=== PATIENT | male | born 1945 | race Caucasian/White ===

== ENCOUNTER → 2019-09-18 14:25 | Outpatient (BNVA) | payer MEDICARE, SELFPAY | PROVIDERS: Family Provider Physician Assistant Medical; PCP Internal Medicine; Referring Provider Physician Assistant Medical; Visit Provider Urology | DX: Z12.5 Encounter for screening for malignant neoplasm of prostate (principal); R97.20 Elevated prostate specific antigen [PSA]; N52.9 Male erectile dysfunction, unspecified; N39.41 Urge incontinence | CPT/HCPCS: 81001 ==

== ENCOUNTER 2019-10-01 06:00 | Outpatient (RCR) | payer MEDICARE, SELFPAY | END 2019-10-09 23:59 | disposition home or self-care (01) | LOC: WPT 06:00 | PROVIDERS: PCP Internal Medicine; Visit Provider Nurse Practitioner Family | DX: M47.816 Spondylosis without myelopathy or radiculopathy, lumbar region (principal) | CPT/HCPCS: 97110; 97162 ==

== ENCOUNTER 2019-10-10 06:00 | Outpatient (RCR) | payer MEDICARE, SELFPAY | END 2019-11-09 23:59 | disposition home or self-care (01) | LOC: WPT 06:00 | PROVIDERS: PCP Internal Medicine; Visit Provider Nurse Practitioner Family | DX: M47.816 Spondylosis without myelopathy or radiculopathy, lumbar region (principal) | CPT/HCPCS: 97110; 97112 ==

== ENCOUNTER → 2019-10-17 14:06 | Outpatient (BNVA) | payer MEDICARE, SELFPAY | PROVIDERS: PCP Internal Medicine; Visit Provider Nurse Practitioner Family | DX: R32 Unspecified urinary incontinence (principal); N52.9 Male erectile dysfunction, unspecified; K21.9 Gastro-esophageal reflux disease without esophagitis; R39.9 Unspecified symptoms and signs involving the genitourinary system | CPT/HCPCS: 81001 ==

== ENCOUNTER 2019-12-08 13:35 | Emergency (ER) | payer MEDICARE, SELFPAY ==
[2019-12-08 13:37] VITALS: BP 167/102; PULSE 74; RESP 17; TEMP 37.1; O2SAT 94; BMI 28.1
--- NOTE | 2019-12-08 13:37 | XRR_ITS ---
PROCEDURE INFORMATION: Exam: XR Lumbosacral Spine, 2 or 3 Views Exam date and time: 12/08/2019 3:16 PM Age: 74 years old Clinical indication: Low back pain; Additional info: Pain S/P fall TECHNIQUE: Imaging protocol: XR of the lumbosacral spine, 2 or 3 views. COMPARISON: CR Lumbar Spine Flex/Extens [id number] 11/03/2016 12:04 PM FINDINGS: Vertebrae: Bones appear demineralized. [id number] L1 superior endplate compression fracture, chronic. Mild L2 superior endplate concavity, chronic. Soft tissues: Unremarkable. XR/XR lumbar spine 2-3V* [id number] IMPRESSION: No acute fracture evident. Chronic L1 compression fracture, unchanged.
--- NOTE | 2019-12-08 13:37 | XRR_ITS ---
PROCEDURE INFORMATION: Exam: XR Thoracic Spine, 3 Views Exam date and time: 12/08/2019 3:16 PM Age: 74 years old Clinical indication: Injury or trauma; Fall; Initial encounter; Blunt trauma (contusions or hematomas); Additional info: Pain/sp fall TECHNIQUE: Imaging protocol: XR of the thoracic spine, 3 views. COMPARISON: 03/29/2014 portable chest. FINDINGS: Vertebrae: Bones appear demineralized. Moderate to severe T8 vertebral body compression fracture, appears chronic and unchanged from 03/29/2014. T11 inferior endplate concave deformity, appears chronic. T4 appears mildly compressed, age uncertain. Soft tissues: Unremarkable. XR/XR thoracic spine 3V* [id number] IMPRESSION: Moderate to severe chronic T8 compression fracture. T11 inferior endplate concave deformity, appears chronic. Mild T4 compression of uncertain age but appears chronic.
--- NOTE | 2019-12-08 13:39 | ED_ITS ---
HPI - Fall General: Chief Complaint: Fall Stated Complaint: MID BACK PAIN S/P FALL Time Seen by Provider: 12/08/19 13:37 History of Present Illness: HPI Narrative: 74-year-old male presents emergency room via EMS. He had slipped out of bed per his report and laid on the floor pretty much most of the night he has some moderate dementia is complaining of low back pain but this is a chronic issue for him. He has had more frequent falls recently. He has no obvious injuries he is sitting slumped a little bit off to the left for comfort he has no focal neurologic deficits or specific complaints or injuries beyond his low back pain. MD complaint: fall Onset (ago): hour(s) Fall from: out of bed Fall witnessed: no Place fall occurred: home Loss of consciousness: None Prolonged down time: yes and hour(s) (12-15) Location of injury: back Severity: moderate Associated symptoms-after fall: Denies abdominal pain or chest pain Review of Systems Const: Denies: fever(s), chills, body aches, change in appetite, fatigue or malaise Card: Denies: chest pain, edema, dyspnea on exertion or orthopnea Resp: Denies: dyspnea, productive cough or non-productive cough GI: Denies: abdominal pain, nausea, vomiting, hematemesis, coffee ground emesis, diarrhea, constipation, bloating, hematochezia or melena : Denies: flank pain, dysuria, urinary frequency or urinary urgency PFS ED PFSH: Medical History Anxiety and depression 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 Elevated PSA Erectile dysfunction GERD (gastroesophageal reflux disease) Hemiparesis History of TIA (transient ischemic attack) Hypertension Osteoarthritis of lumbar spine Seizure disorder Urge incontinence of urine Urinary incontinence UTI symptoms Family History Mother Cancer Brother Diabetes Father CAD (coronary artery disease) Social History Smoking and tobacco status: never smoked Alcohol intake: never Adopted: No Caregiver/support person: No Marital status: / Physical Exam Const: COMMON NORMALS: no acute distress GENERAL APPEARANCE: cooperative and comfortable ORIENTATION/CONSCIOUSNESS: Yes awake, Yes oriented to person, Yes oriented to place and Yes oriented to time HENMT: COMMON NORMALS: normocephalic, atraumatic and hearing grossly normal bilaterally HEAD & SCALP: normocephalic and atraumatic Eye: COMMON NORMALS: Equal, round and reactive pupils present, EOMs intact bilaterally, conjunctivae normal and no scleral icterus CONJUNCTIVA: Yes conjunctivae normal PUPIL: Yes Equal, round and reactive pupils present Neck/C-Spine: COMMON NORMALS: full ROM, no lymphadenopathy, supple and no JVD Lymph: LYMPHATIC: no lymphadenopathy noted and no lymphedema noted Resp: COMMON NORMALS: normal respiratory effort, No retractions, No use of accessory muscles and clear to auscultation bilaterally AUSCULTATION: clear to auscultation bilaterally Cardio: COMMON NORMALS: no JVD, regular rate, regular rhythm and No murmurs present (Cardio) RATE: regular rate RHYTHM: regular rhythm GI: COMMON NORMALS: Soft to palpation and No hepatosplenomegaly present AUSCULTATION: Yes normoactive bowel sounds PALPATION: Yes Soft to palpation, No Tenderness to palpation present (GI), No Guarding due to palpation present (GI) and Yes No hepatosplenomegaly present Extremity: COMMON NORMALS: normal to inspection, capillary refill normal, no clubbing, cyanosis or edema, no calf tenderness and no pedal edema Neuro: SENSORIUM/ORIENTATION: Yes oriented to person, Yes oriented to place and Yes oriented to time Skin: COMMON NORMALS: no rashes or lesions noted GENERAL SKIN EXAM: no rashes or lesions noted Course Vital Signs: Vital signs: Vital Signs Temperature 98.7 F 12/08/19 13:37 Pulse Rate 70 12/08/19 16:37 Respiratory Rate 16 12/08/19 16:37 Blood Pressure 121/85 12/08/19 16:37 Pulse Oximetry 94 12/08/19 16:37 MDM - Fall MDM Narrative: Medical decision making narrative: He has no injury at this time and only mild rise in CPK. His renal function is normal he is awake and alert and active. He has had multiple falls recently discussed with the daughter who is here with him that he probably does need a change in level of care or very least increased assistance at home that is probably not practical or feasible for the family recommend a follow-up with her primary care doctor for skilled nursing placement I do believe he is does have some dementia. Initially the daughter was insisting that he have a neurology consult for his dementia emergently in the ER. Discussed with her that dementia is not an emergent diagnosis and that we can make arrangements for her to get an outpatient evaluation will have case management work on that we will discharge him home for now strongly encouraged him to follow-up with primary care to look at long-term placement for assistance with his ADLs. Lab Data: Labs: Lab Results 12/08/19 12/08/19 12/08/19 Range/Units 13:48 13:48 14:11 WBC 12.7 H (4.0-10.0) 10^3/ uL RBC 4.95 (4.1-5.3) 10^6/u L Hgb 14.6 (11.7-16.6) g/dL Hct 44.1 (42.0-52.0) % MCV 89.1 (80-94) fL MCH 29.5 (28.0-34.0) pg MCHC 33.1 (30.0-36.0) g/dL RDW 12.6 (12.1-15.1) % Plt Count 229 (130-400) 10^3/c mm MPV 10.8 H (7.4-10.4) fL Neut % (Auto) 75.3 % Lymph % (Auto) 16.6 % Mccracken % (Auto) 7.2 % Eos % (Auto) 0.1 % Baso % (Auto) 0.4 % Neut # (Auto) 9.56 H (1.8-7.7) 10^3/u L Lymph # (Auto) 2.1 (0.8-4.8) 10^3/u L Mccracken # (Auto) 0.9 (0.2-0.9) 10^3/u L Eos # (Auto) 0.0 (0.0-0.8) 10^3/u L Baso # (Auto) 0.1 (0.0-0.1) 10^3/u L Nucleated RBC % (a uto) 0 % Nucleated RBCs # 0.0 /100WBC Sodium 141 (136-145) mmol/L Potassium 3.3 L (3.5-5.1) mmol/L Chloride 103 (98-107) mmol/L Carbon Dioxide 27 (22-29) mmol/L Anion Gap 14.3 (5-19) BUN 23 (8-23) mg/dL Creatinine 1.1 (0.7-1.2) mg/dL GFR Calculation Not Reportable Glucose 102 (65-115) mg/dL Calculated Osmolal ity 289 (285-295) mOsm/k g Calcium 9.6 (8.5-10.5) mg/dL Total Bilirubin 1.1 (0.15-1.2) mg/dL AST 44 H (0-40) U/L ALT 29 (0-41) U/L Alkaline Phosphata se 62 (40-130) IU/L Creatine Kinase 841 H* (39-308) U/L Total Protein 7.1 (6.6-8.7) g/dL Albumin 3.9 (3.5-5.2) g/dL Globulin 3.2 (1.3-4.6) g/dL Urine Color Dark yellow (Yellow) Urine Appearance Clear (CLEAR) Urine pH 5 (5-7) Ur Specific Gravit y 1.025 (1.005-1.030) Urine Protein 1+ H (Negative) Urine Glucose (UA) Norm (Normal) Urine Ketones 1+ H (Negative) Urine Blood 2+ H (Negative) Urine Nitrate Negative (Negative) Urine Bilirubin 1+ H (NEGATIVE) Urine Urobilinogen 1 H (Negative) mg/dL Ur Leukocyte [place] ase Negative (Negative) Urine RBC Rare (0-2) /hpf Urine WBC Rare (0-5) /hpf Ur Squamous Epith Cells None (0-5) Amorphous Sediment Not Reportable Urine Bacteria 1+ H (NONE) Urine Mucus 1+ Discharge Plan Discharge Patient Disposition: Home Clinical Impression: Fall from bed, Dementia, Rhabdomyolysis Condition: Stable Prescriptions: No Action amlodipine 5 mg tablet 5 mg PO DAILY RF: 0 levetiracetam 500 mg tablet 500 mg PO Q12H RF: 0 aspirin 325 mg tablet 325 mg PO PRN RF: 0 losartan 50 mg tablet 50 mg PO DAILY RF: 0 oxybutynin chloride 5 mg tablet 5 mg PO BID RF: 0 simvastatin 20 mg tablet 20 mg PO DAILY RF: 0 sildenafil 100 mg tablet 100 mg PO DAILY PRN (Reason: sexual activity) Qty: 20 RF: 12 omeprazole 40 mg capsule,delayed release(DR/EC) 40 mg PO DAILY 30 Days Qty: 30 RF: 0 ciprofloxacin HCl [Cipro] 250 mg tablet 250 mg PO BID 3 Days Qty: 6 RF: 0 venlafaxine 150 mg capsule,extended release 24hr 150 mg PO DAILY RF: 0 Tylenol Extra Strength 500 mg Tablet 1,000 mg PO PRN RF: 0 tamsulosin 0.4 mg capsule 0.4 mg PO DAILY RF: 0 Discharge Orders: Discharge Order (Routine); Ordered 12/08/19 Ordered By: Tre Perera Referrals: Washington Wellington MD [Primary Care Provider] - Discharge Diet: Usual diet Discharge Activity: Limit activity as instructed Activity Restrictions/Additional Instructions: Follow-up with your primary care doctor for assistance with placement at a higher level of care. Case management will call to make an arrangement for neurology consult. Discharge Date/Time: 12/08/19 16:40 Coding Level of Care Code ED Press Maintainer for Jaylan Fwd Exam Comprehensive
--- NOTE | 2019-12-08 13:45 | XRR_ITS ---
PROCEDURE INFORMATION: Exam: XR Chest, 1 View Exam date and time: 12/08/2019 3:16 PM Age: 74 years old Clinical indication: Cough and dyspnea; Additional info: Dyspnea/cough TECHNIQUE: Imaging protocol: XR of the chest Views: 1 view. COMPARISON: CR Chest 1 [place] [id number] 03/29/2014 10:04 AM FINDINGS: Lungs: Mildly reduced lung volumes. No confluent infiltrate evident. Pleural space: Unremarkable. No pleural effusion. No pneumothorax. Heart/Mediastinum: Unremarkable. No cardiomegaly. Vasculature: Ectatic/tortuous aorta, chronic. Bones/joints: Bilateral shoulder surgery with humeral head anchor pins in place. Chronic appearing T8 compression fracture. XR/XR chest 1V portable [id number] IMPRESSION: No acute cardiopulmonary process evident.
--- NOTE | 2019-12-08 13:45 | ECG_ITS ---
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 Measurements Intervals Joseph Rate: 79 P: 9 UT: 169 QRS: -41 QRSD: 117 T: 66 QT: 391 QTc: 450 Interpretive Statements SINUS RHYTHM WITH OCCASIONAL SUPRAVENTRICULAR PREMATURE COMPLEXES POSSIBLE LEFT ATRIAL ENLARGEMENT [-0.1mV P WAVE IN V1/V2] LEFT AXIS DEVIATION [QRS AXIS < -30] LEFT VENTRICULAR HYPERTROPHY AND ST-T CHANGE [VOLTAGE CRITERIA PLUS ST/T ABNORMALITY] Compared to ECG 03/29/2014 09:06:31 Left ventricular hypertrophy now present ST (T wave) deviation now present Intraventricular conduction delay no longer present Electronically Signed On 12-08-2019 20:54:08 CDT by Sarah Figueredo M.D. [id number]
[2019-12-08 14:00] VITALS: BP 161/101; PULSE 79; RESP 18; O2SAT 96
[2019-12-08 14:28] LABS: Basophils # 0.1 10^3/uL (0.0-0.1); Basophils % 0.4 %; Eosinophils % 0.1 %; Hematocrit 44.1 % (42.0-52.0); Hemoglobin 14.6 g/dL (11.7-16.6); Lymphocytes # 2.1 10^3/uL (0.8-4.8); Lymphocytes % 16.6 %; Mean Corpuscular HGB Conc 33.1 g/dL (30.0-36.0); Mean Corpuscular Hemoglobin 29.5 pg (28.0-34.0); Mean Corpuscular Volume 89.1 fL (80-94); Mean Platelet Volume 10.8 fL (7.4-10.4); Monocytes # 0.9 10^3/uL (0.2-0.9); Monocytes % 7.2 %; Neutrophils # 9.56 10^3/uL (1.8-7.7); Neutrophils % 75.3 %; Nucleated Red Blood Cells % 0 %; Platelet Count 229 10^3/cmm (130-400); Red Blood Count 4.95 10^6/uL (4.1-5.3); Red Cell Distribution Width 12.6 % (12.1-15.1); White Blood Count 12.7 10^3/uL (4.0-10.0)
[2019-12-08] MEDS: sodium chloride 0.9% 1,000 ML 999 ML IV (14:37)
[2019-12-08 14:58] LABS: Alanine Aminotransferase 29 U/L (0-41); Albumin Level 3.9 g/dL (3.5-5.2); Alkaline Phosphatase 62 IU/L (40-130); Anion Gap 14.3 (5-19); Aspartate Amino Transferase 44 U/L (0-40); Blood Urea Nitrogen 23 mg/dL (8-23); Calcium 9.6 mg/dL (8.5-10.5); Carbon Dioxide 27 mmol/L (22-29); Chloride 103 mmol/L (98-107); Globulin 3.2 g/dL (1.3-4.6); Glucose 102 mg/dL (65-115); Osmolality Calculated 289 mOsm/kg (285-295); Potassium 3.3 mmol/L (3.5-5.1); Sodium 141 mmol/L (136-145); Total Bilirubin 1.1 mg/dL (0.15-1.2); Total Protein 7.1 g/dL (6.6-8.7)
[2019-12-08 15:03] LABS: Creatine Phosphokinase 841 U/L (39-308)
[2019-12-08 15:08] LABS: Add Urine Microscopic? YES; Bacteria Urine 1+; Bilirubin Urine 1+ (NEGATIVE); Blood Urine 2+ (Negative); Glucose Urine UA Norm (Normal); Ketones Urine 1+ (Negative); Leukocyte Esterase Urine Negative (Negative); Mucus Urine 1+; Nitrate Urine Negative (Negative); Protein Urine 1+ (Negative); RBC Urine RARE /hpf (0-2); Specific Gravity, Urine 1.025 (1.005-1.030); Urine Appearance Clear (CLEAR); Urine Color Dark Yellow (Yellow); Urobilinogen Urine 1 mg/dL (Negative); WBC Urine RARE /hpf (0-5); pH Urine 5 (5-7)
[2019-12-08 15:09] LABS: Add Urine Culture? No
[2019-12-08 16:37] VITALS: BP 121/85; PULSE 70; RESP 16; O2SAT 94
--- NOTE | 2019-12-10 14:49 | DCPLANNER ---
service center manager had message to schedule a follow up appointment for patient with Dr. Ceballos office. service center manager called the office of Dr. Tobias, spoke with Debbie. service center manager gave clinic patients information. service center manager was told that patients information would be printed and reviewed. Clinic will call patient with appointment information.
--- NOTE | 2019-12-11 14:14 | DCPLANNER ---
Patient has a follow up appointment scheduled for Tuesday, February 04, 2020 at 2:[address] Tobias. Clinic will call patient with appointment information.
--- NOTE | 2020-02-07 15:12 | DCPLANNER ---
Patient had a follow up appointment scheduled for 02.04.20 - appointment rescheduled for a later date.
== END 2019-12-08 16:40 | disposition home or self-care (01) ==
PROVIDERS: Emergency Provider Family Medicine; PCP Internal Medicine
DX: M62.82 Rhabdomyolysis (principal); F03.90 Unspecified dementia, unspecified severity, without behavioral disturbance, psychotic disturbance, mood disturbance, and anxiety; Z79.82 Long term (current) use of aspirin; Z86.73 Personal history of transient ischemic attack (TIA), and cerebral infarction without residual deficits; I10 Essential (primary) hypertension
CPT/HCPCS: 12345; 71045; 72072; 72100; 80053; 81001; 82550; 85025; 93005; 96360; 99283; J7030

== ENCOUNTER → 2020-04-01 09:45 | Outpatient (BNVA) | payer MEDICARE, SELFPAY | PROVIDERS: PCP Internal Medicine; Visit Provider Specialist | DX: G31.83 Neurocognitive disorder with Lewy bodies (principal); F02.80 Dementia in other diseases classified elsewhere, unspecified severity, without behavioral disturbance, psychotic disturbance, mood disturbance, and anxiety | CPT/HCPCS: 99204 ==

== ENCOUNTER → 2020-05-28 10:24 | Outpatient (BNVA) | payer MEDICARE, SELFPAY | PROVIDERS: PCP Internal Medicine; Visit Provider Specialist | DX: G31.83 Neurocognitive disorder with Lewy bodies (principal); F02.80 Dementia in other diseases classified elsewhere, unspecified severity, without behavioral disturbance, psychotic disturbance, mood disturbance, and anxiety | CPT/HCPCS: 95816 ==

== ENCOUNTER 2020-06-25 15:13 | Outpatient (CLI) | payer MEDICARE, SELFPAY ==
--- NOTE | 2020-06-25 14:30 | CT_ITS ---
WS: [id number] CT HEAD TECHNIQUE: Noncontrast CT of the head obtained from the skullbase to the vertex. CLINICAL INFORMATION: G31.83 - Dementia with Lewy bodies COMPARISON: MRI March [address] March 2014. DLP: 935.[address] scans at [facility] use at least one of these dose optimization techniques: automat ed exposure control; mA and/or kV adjustment per patient size (includes targeted exams where dose is matched to clinical indication); or iterative reconstruction. FINDINGS: No evidence of intracranial hemorrhage or mass effect. Ventricular system and basal cisterns are yadav nt. Moderate small vessel changes with moderate parenchymal volume loss. Chronic lacunar infarcts in the right caudate and right greater than left basal ganglia. Intracranial vascular calcification. No extra-axial fluid collections. No evidence of mass or mass effect. Normal campbell-white differentiation. Mastoid air cells are well aerated. Mild mucosal thickening in the ethmoid air cells. CT/CT head wo con* [id number] IMPRESSION: 1. No evidence of intracranial hemorrhage or mass effect. 2. Moderate small vessel changes with moderate parenchymal volume loss. 3. Parenchymal volume loss and small vessel disease has progressed since 2014. 4. Chronic lacunar infarcts right caudate and right greater than left basal ga nglia. 5. Intracranial vascular calcifications.
== END 2020-06-25 15:14 | disposition home or self-care (01) ==
LOC: RAD 15:20
PROVIDERS: PCP Internal Medicine; Visit Provider Specialist
DX: G31.83 Neurocognitive disorder with Lewy bodies (principal); G93.89 Other specified disorders of brain; I63.81 Other cerebral infarction due to occlusion or stenosis of small artery
CPT/HCPCS: 70450

== ENCOUNTER → 2020-08-12 09:50 | Outpatient (BNVA) | payer MEDICARE, SELFPAY | PROVIDERS: PCP Internal Medicine; Visit Provider Specialist | DX: G31.83 Neurocognitive disorder with Lewy bodies (principal); F02.80 Dementia in other diseases classified elsewhere, unspecified severity, without behavioral disturbance, psychotic disturbance, mood disturbance, and anxiety | CPT/HCPCS: 96116; 99214 ==

== ENCOUNTER → 2022-01-25 09:21 | Outpatient (BNVA) | payer MEDICARE, SELFPAY | PROVIDERS: PCP Internal Medicine; Visit Provider Nurse Practitioner Family | DX: R39.9 Unspecified symptoms and signs involving the genitourinary system (principal) | CPT/HCPCS: 51798; 99213 ==